=== PATIENT | female | born 1975 | race American Indian/Alaskan Native ===

== ENCOUNTER 2020-04-19 07:10 | Emergency (ER) | payer SELFPAY ==
[2020-04-19 08:11] LABS: Bacteria,Urine 1+ /HPF (Negative); Bilirubin,Urine NEG (Negative); Blood,Urine NEG (Negative); Color,Urine Yellow (Yellow); Mucus,Urine 1+ /HPF; Protein,Urine <15 mg/dL mg/dL (Negative); Urobilinogen,Urine < 2.0 mg/dL (<2.0)
[2020-04-19 08:56] LABS: Alanine Aminotransferase 10 units/L (7-56); Albumin 4.1 g/dL (3.9-5); Blood Urea Nitrogen 9 mg/dL (7-17); Calcium 9.8 mg/dL (8.4-10.2); Hemolysis Index 1
[2020-04-19 09:00] LABS: BUN/Creatinine Ratio 18
[2020-04-19 09:01] LABS: Basophils # (Auto) 0.1 K/mm3 (0.0-0.1); Basophils % (Auto) 1.9 % (0.0-1.8); Eosinophils # (Auto) 0.3 K/mm3 (0.0-0.4); Eosinophils % (Auto) 4.6 % (0.0-4.3); Hematocrit 26.2 % (30.3-42.9); Lymphocytes # (Auto) 1.4 K/mm3 (1.2-5.4); Lymphocytes % (Auto) 25.5 % (13.4-35.0); Mean Corpuscular HGB Conc 31 % (30-34); Monocytes # (Auto) 0.5 K/mm3 (0.0-0.8); Monocytes % (Auto) 9.5 % (0.0-7.3); Platelet Count 649 K/mm3 (140-440); Red Blood Count 3.95 M/mm3 (3.65-5.03)
[2020-04-19 09:02] LABS: Mean Corpuscular Volume 66 fl (79-97); Red Cell Distribution Width 24.3 % (13.2-15.2)
[2020-04-19] MEDS ORDERED: MORPHINE 2 MG/1 ML INJ IV ONE (11:59)
--- NOTE | 2020-04-19 13:22 | Cat Scan Report ---
CT ABDOMEN AND PELVIS WITH CONTRAST INDICATION / CLINICAL INFORMATION: RLL abdominal pain. TECHNIQUE: Axial CT images were obtained through the abdomen and pelvis after 100 mL Omnipaque [address] scans at this location are performed using CT dose reduction for ALARA by means of automated exposure control. COMPARISON: None available. FINDINGS: LOWER CHEST: No significant abnormality. LIVER: No significant abnormality. BILIARY SYSTEM: No significant abnormality. PANCREAS: No significant abnormality. SPLEEN: No significant abnormality. ADRENALS: No significant abnormality. KIDNEYS and URETERS: No significant abnormality. STOMACH / BOWEL: No significant abnormality. The appendix is normal. PERITONEUM: Trace pelvic free fluid, likely physiologic. No free air. No fluid collection. LYMPH NODES: No significant adenopathy. VASCULAR STRUCTURES: No significant abnormality. URINARY BLADDER: No significant abnormality. REPRODUCTIVE ORGANS: The uterus is unremarkable. A right corpus luteum is noted. The adnexa are other dominguez unremarkable in appearance. ADDITIONAL FINDINGS: None. 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 IMPRESSION: 1. No acute process identified within the abdomen or pelvis to account for patient's abdominal pain. 2. A right corpus luteum is noted. 3. Incidental T10 vertebral body variant. Signer Name: Marcia Caruso MD Signed: 04/19/2020 1:18 PM Workstation Name: [id number]
--- NOTE | 2020-04-19 14:02 | Emergency Department Report ---
ED Abdominal Pain HPI - General Chief Complaint: Abdominal Pain Stated Complaint: STOMACH PAIN Time Seen by Provider: 04/19/20 11:51 Source: patient, family Mode of arrival: Ambulatory Limitations: Language Barrier - History of Present Illness Initial Comments: This a 44-year-old female with 1 week complaint of abdominal discomfort and some bloating she states that the pain worsened last night she denies diarrhea no vomiting no nausea her last bowel movement was this morning pain is worse at the right lower quadrant she denies any urinary symptoms no fever or chills. Her last menstrual period was 03/29/2020 she rates the pain as a 5/10 -: Gradual Radiation: RLQ Severity scale (0 -10): 5 Quality: aching Consistency: intermittent Worsens With: nothing Associated Symptoms: denies other symptoms. denies: nausea, vomiting, diarrhea, constipation, dysuria - Related Data Allergies Allergy/AdvReac Type Severity Reaction Status Date / Time No Known Allergies Allergy Unverified 04/19/20 07:12 ED Review of Systems ROS: Stated complaint: STOMACH PAIN Other details as noted in HPI Constitutional: no symptoms reported. denies: see HPI, chills, fever Eyes: denies: eye pain ENT: denies: ear pain, throat pain Respiratory: denies: cough, SOB with exertion Cardiovascular: denies: chest pain, palpitations Gastrointestinal: abdominal pain. denies: nausea, vomiting, diarrhea, constipation Musculoskeletal: denies: back pain, arthralgia Skin: denies: rash Neurological: denies: headache, paresthesias Psychiatric: denies: depression, homicidal thoughts Hematological/Lymphatic: denies: easy bleeding ED Past Medical Hx - Past Medical History Previous Medical History?: Yes Additional medical history: child - Surgical History Past Surgical History?: Yes Additional Surgical History: - Social History Smoking Status: Never Smoker Substance Use Type: Alcohol ED Physical Exam - General Limitations: Language Barrier General appearance: alert, in no apparent distress - Head Head exam: Present: atraumatic - Eye Eye exam: Present: normal appearance. Absent: scleral icterus - ENT ENT exam: Present: mucous membranes moist - Respiratory Respiratory exam: Present: normal lung sounds bilaterally - Cardiovascular Cardiovascular Exam: Present: regular rate, normal heart sounds - GI/Abdominal GI/Abdominal exam: Present: soft, distended, tenderness (RLL), normal bowel sounds - Rectal Rectal exam: Present: deferred - Extremities Exam Extremities exam: Present: normal inspection - Back Exam Back exam: Present: normal inspection, full ROM. Absent: CVA tenderness (R), CVA tenderness (L) - Neurological Exam Neurological exam: Present: alert, oriented X3 - Psychiatric Psychiatric exam: Present: normal affect - Skin Skin exam: Present: warm, dry, intact, normal color ED Course Vital Signs 04/19/20 04/19/20 07:16 12:30 Temperature 98.2 F Pulse Rate 85 Respiratory 18 16 Rate Blood Pressure 101/38 [Right] O2 Sat by Pulse 100 Oximetry - Reevaluation(s) Reevaluation #1: 04/19/20 14:00 Patient resting comfortably in her room she denies any pain at this time results of CT scan discussed with patient she is to follow-up with her primary care doctor as needed ED Medical Decision Making - Lab Data Result diagrams: 04/19/20 08:14 04/19/20 08:14 - Radiology Data Radiology results: report reviewed - Medical Decision Making Ct of abd/pelvis with contrast FINDINGS: LOWER CHEST: No significant abnormality. LIVER: No significant abnormality. BILIARY SYSTEM: No significant abnormality. PANCREAS: No significant abnormality. SPLEEN: No significant abnormality. ADRENALS: No significant abnormality. KIDNEYS and URETERS: No significant abnormality. STOMACH / BOWEL: No significant abnormality. The appendix is normal. PERITONEUM: Trace pelvic free fluid, likely physiologic. No free air. No fluid collection. LYMPH NODES: No significant adenopathy. VASCULAR STRUCTURES: No significant abnormality. URINARY BLADDER: No significant abnormality. REPRODUCTIVE ORGANS: The uterus is unremarkable. A right corpus luteum is noted. The adnexa are otherwise unremarkable in appearance. ADDITIONAL FINDINGS: None. 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 IMPRESSION: 1. No acute process identified within the abdomen or pelvis to account for patient's abdominal pain. 2. A right corpus luteum is noted. 3. Incidental T10 vertebral body Abdominal pain of unclear etiology s normal urine results normal bloodwork no acute findings on CT patient is pain-free while in the department with no intervention she did refuse morphine when offered earlier and she says she is p ain-free currently Critical care attestation.: If time is entered above; I have spent that time in minutes in the direct care of this critically ill patient, excluding procedure time. ED Disposition Clinical Impression: Abdominal pain Qualifiers: Abdominal location: right lower quadrant Qualified Code(s): R10.31 - Right lower quadrant pain Disposition: TO HOME OR SELFCARE Is pt being admited?: No Does the pt Need Aspirin: No Condition: Stable Instructions: Abdominal Pain (ED), Abdominal Pain, Adult, [id number] Additional Instructions: FINDINGS: of the cat scan of your abdomen LOWER CHEST: No significant abnormality. LIVER: No significant abnormality. BILIARY SYSTEM: No significant abnormality. PANCREAS: No significant abnormality. SPLEEN: No significant abnormality. ADRENALS: No significant abnormality. KIDNEYS and URETERS: No significant abnormality. STOMACH / BOWEL: No significant abnormality. The appendix is normal. PERITONEUM: Trace pelvic free fluid, likely physiologic. No free air. No fluid collection. LYMPH NODES: No significant adenopathy. VASCULAR STRUCTURES: No significant abnormality. URINARY BLADDER: No significant abnormality. REPRODUCTIVE ORGANS: The uterus is unremarkable. A right corpus luteum is noted. The adnexa are otherwise unremarkable in appearance. ADDITIONAL FINDINGS: None. SKELETAL SYSTEM: Incidental note of a vertebral body variant at T10 most compat ible with a butterfly vertebrae. IMPRESSION: 1. No acute process identified within the abdomen or pelvis to account for patient's abdominal pain. 2. A right corpus luteum is noted. 3. Incidental T10 vertebral body variant. Okay to take [id number] Advil or Tylenol as needed for pain. You had no acute findings on the CAT scan of your abdomen. Return to the emergency room if you develop severe pain fever inability to eat or any other concerning symptoms otherwise follow-up with your primary care doctor Referrals: BERTRAM SHARPE MD [Primary Care Provider] - 3-5 Days OCTAVIO MUSTAFA MD [Staff Physician] - 3-5 Days Time of Disposition: 14:01
[2020-04-19 14:19] VITALS: BP 114/66
== END 2020-04-19 14:19 | disposition home or self-care (01) ==
LOC: ED 07:10
DX: R10.31 Right lower quadrant pain (principal); Z98.890 Other specified postprocedural states
CPT/HCPCS: 36415; 74177; 80053; 81001; 83690; 84703; 85025; 99284; Q9967